=== PATIENT | male | born 1960 | race African-American/Black ===

== ENCOUNTER 2021-03-08 17:32 | Emergency (ER) | payer OTHER, MEDICAID ==
[~2021-03-08] VITALS: Ht 167.6 cm; Wt 72.6 kg
[2021-03-08 17:32] VITALS: BP 175/86
[2021-03-08 18:07] LABS: Basophils # (auto) 0 10 ^3/uL (0-0.2); Basophils % (auto) 0.5 % (0.0-2.0); Eosinophils # (auto) 0.2 10 ^3/uL (0-0.8); Eosinophils % (auto) 2.8 % (0.0-7.0); Hematocrit 51.3 % (41.0-53.0); Hemoglobin 17.4 g/dL (13.5-17.5); Lymphocytes # (auto) 2.2 10 ^3/uL (0.4-5.4); Lymphocytes % (auto) 29.6 % (10.0-50.0); Mean Corpuscular Hemoglobin 31.4 pg (28.0-32.0); Mean Corpuscular Volume 92.4 fL (80.0-100.0); Monocytes # (auto) 0.6 10 ^3/uL (0-1.3); Neutrophils # (auto) 4.5 10 ^3/uL (1.6-8.6); Neutrophils % (auto) 59.1 % (37.0-80.0); Nucleated Red Blood Cells % 0.1 %; Red Blood Cells 5.55 10^6/uL (4.5-5.90); White Blood Cell 7.6 10^3/uL (4.4-10.8)
[2021-03-08 18:43] LABS: Albumin 4.3 g/dL (3.4-5.0); Calcium 9.1 mg/dL (8.5-10.1)
[2021-03-08 18:48] LABS: BUN/Creatinine Ratio 15.6; Bilirubin, Total 0.9 mg/dL (0.2-1.0); Total Protein 8.3 g/dL (6.4-8.2)
[2021-03-08 19:00] LABS: Potassium 2.9 mmol/L (3.5-5.1)
[2021-03-08] MEDS ORDERED: SODIUM CHLORIDE 0.9% 1,000 ML IVB ONE (19:15)
[2021-03-08] MEDS ORDERED: ONDANSETRON HCL 4 MG/2 ML VIAL IV ONE ×2 (19:15→20:00)
[2021-03-08] MEDS ORDERED: MORPHINE SULFATE 4 MG/ML SYR/VIAL IV ONE (19:15)
[2021-03-08] MEDS ORDERED: POTASSIUM EFFERVESENT TAB 25 MEQ PO ONE (20:00)
[2021-03-08] MEDS ORDERED: POTASSIUM CHL 20MEQ/100ML 100 ML IV SCH (20:00)
== END 2021-03-09 04:16 | disposition left against medical advice (07) ==
LOC: EDBD 17:32 → ER 17:32
DX: R10.32 Left lower quadrant pain (principal); R11.2 Nausea with vomiting, unspecified; E87.6 Hypokalemia; Z88.0 Allergy status to penicillin
CPT/HCPCS: 36415; 74176; 80053; 82150; 83690; 85025; 93005

== ENCOUNTER 2021-07-12 11:15 | Emergency (ER) | payer OTHER, MEDICAID ==
[~2021-07-12] VITALS: Ht 175.3 cm; Wt 72.6 kg
[2021-07-12 11:28] VITALS: BP 112/71
[2021-07-12] MEDS ORDERED: FAMOTIDINE (10MG/ML) 2ML VL IV ONE (12:00)
[2021-07-12] MEDS ORDERED: ONDANSETRON HCL 4 MG/2 ML VIAL IV ONE (12:00)
[2021-07-12] MEDS ORDERED: MAGIC MOUTHWASH 55 ML SUSP MT ONE (12:00)
[2021-07-12 12:22] LABS: Basophils # (auto) 0.1 10 ^3/uL (0-0.2); Basophils % (auto) 1.1 % (0.0-2.0); Eosinophils # (auto) 0.3 10 ^3/uL (0-0.8); Eosinophils % (auto) 5.4 % (0.0-7.0); Hematocrit 43.9 % (41.0-53.0); Hemoglobin 14.7 g/dL (13.5-17.5); Lymphocytes # (auto) 1.6 10 ^3/uL (0.4-5.4); Mean Corpuscular Hemoglobin 31.3 pg (28.0-32.0); Mean Corpuscular Hgb Conc. 33.4 g/dL (32.0-36.0); Mean Corpuscular Volume 93.8 fL (80.0-100.0); Monocytes # (auto) 0.4 10 ^3/uL (0-1.3); Monocytes % (auto) 7.1 % (0.0-12.0); Neutrophils # (auto) 3.1 10 ^3/uL (1.6-8.6); Neutrophils % (auto) 57.4 % (37.0-80.0); Nucleated Red Blood Cells % 0.4 %; Red Blood Cells 4.68 10^6/uL (4.5-5.90); Red Cell Distribution Width 15.3 % (11.8-14.3); White Blood Cell 5.5 10^3/uL (4.4-10.8)
[2021-07-12 12:42] LABS: Albumin 3.7 g/dL (3.4-5.0); Calcium 8.6 mg/dL (8.5-10.1); Magnesium 2.8 mg/dL (1.6-2.6); Potassium 3.9 mmol/L (3.5-5.1)
[2021-07-12 13:29] LABS: BUN/Creatinine Ratio 11.1; Bilirubin, Total 0.7 mg/dL (0.2-1.0)
[2021-07-12] MEDS ORDERED: LIDOCAINE VISCOUS 2% 15ML UD PO ONE (15:15)
[2021-07-12] MEDS ORDERED: ALUM & MAG HYDROX-SIMETH LIQ(MAALOX) 30 ML PO ONE (15:15)
[2021-07-12] MEDS ORDERED: diphenhdrAMINE HCL 50 MG/1 ML VL IV ONE (15:15)
[2021-07-12] MEDS ORDERED: DONNATAL 5ml ORAL Elix (BELLADONNA ALK-PHENOBARB) PO ONE (15:15)
[2021-07-12] MEDS ORDERED: OMEP-434 PO (15:53)
== END 2021-07-12 15:25 | disposition left against medical advice (07) ==
LOC: EDBD 11:15 → ER 11:15
DX: R10.30 Lower abdominal pain, unspecified (principal); R11.2 Nausea with vomiting, unspecified; R94.31 Abnormal electrocardiogram [ECG] [EKG]; Z88.0 Allergy status to penicillin
CPT/HCPCS: 36415; 71045; 80053; 80320; 83690; 83735; 84484; 85025; 93005; 96374; 96375; 99285; J2405; J3490

== ENCOUNTER 2021-07-29 04:37 | Emergency (ER) | payer OTHER, MEDICAID ==
[~2021-07-29] VITALS: Ht 165.1 cm; Wt 63.5 kg
[~2021-07-29 04:37] MED LIST: OMEP-434 PO
[2021-07-29 04:51] VITALS: BP 157/95
== END 2021-07-29 06:25 | disposition left against medical advice (07) ==
LOC: ER 04:37 → EDBD 04:37 → ER 06:25
DX: R10.9 Unspecified abdominal pain (principal); R11.2 Nausea with vomiting, unspecified; K21.9 Gastro-esophageal reflux disease without esophagitis; Z53.21 Procedure and treatment not carried out due to patient leaving prior to being seen by health care provider

== ENCOUNTER → 2021-12-16 | Emergency (ER) | payer OTHER, MEDICAID ==
[~2021-12-16] VITALS: Ht 185.4 cm; Wt 81.6 kg
[2021-12-16 04:40] VITALS: BP 124/77
== END | disposition left against medical advice (07) ==
LOC: EDUNIT# 04:27 → ER 04:37 → EDBD 04:37
DX: R10.30 Lower abdominal pain, unspecified (principal); R11.2 Nausea with vomiting, unspecified; Z53.21 Procedure and treatment not carried out due to patient leaving prior to being seen by health care provider

== ENCOUNTER 2022-06-30 14:06 | Emergency (ER) | payer OTHER ==
[~2022-06-30] VITALS: Ht 167.6 cm; Wt 70.0 kg
[~2022-06-30 14:06] MED LIST changes: +ONDA-144 PO; +PANT40TA2 PO
[2022-06-30] MEDS ORDERED: ONDANSETRON HCL 4 MG/2 ML VIAL BC ONE (15:00)
[2022-06-30 15:23] LABS: BUN/Creatinine Ratio 12.2; Potassium 3.3 mmol/L (3.5-5.1)
[2022-06-30 15:26] LABS: Bilirubin, Total 1.2 mg/dL (0.2-1.0); Total Protein 6.8 g/dL (6.4-8.2)
[2022-06-30 15:49] LABS: Basophils # (auto) 0 10 ^3/uL (0-0.2); Basophils % (auto) 0.5 % (0.0-2.0); Eosinophils # (auto) 0 10 ^3/uL (0-0.8); Eosinophils % (auto) 0.1 % (0.0-7.0); Hematocrit 47.4 % (41.0-53.0); Hemoglobin 16.4 g/dL (13.5-17.5); Lymphocytes # (auto) 1.2 10 ^3/uL (0.4-5.4); Lymphocytes % (auto) 19.5 % (10.0-50.0); Mean Corpuscular Hemoglobin 31.7 pg (28.0-32.0); Mean Corpuscular Hgb Conc. 34.7 g/dL (32.0-36.0); Mean Corpuscular Volume 91.5 fL (80.0-100.0); Monocytes # (auto) 0.3 10 ^3/uL (0-1.3); Monocytes % (auto) 5.4 % (0.0-12.0); Neutrophils # (auto) 4.5 10 ^3/uL (1.6-8.6); Neutrophils % (auto) 74.5 % (37.0-80.0); Nucleated Red Blood Cells % 0.1 %; Red Blood Cells 5.18 10^6/uL (4.5-5.90); Red Cell Distribution Width 14.1 % (11.8-14.3)
[2022-06-30] MEDS ORDERED: ONDA-144 PO (16:34)
[2022-06-30 19:50] VITALS: BP 157/85
== END 2022-06-30 19:42 | disposition left against medical advice (07) ==
LOC: ER 14:06 → EDBD 14:06 → ER 19:42
DX: R10.13 Epigastric pain (principal); F17.210 Nicotine dependence, cigarettes, uncomplicated; F12.10 Cannabis abuse, uncomplicated; Z88.0 Allergy status to penicillin
CPT/HCPCS: 36415; 74176; 80053; 83605; 83690; 84484; 85025